=== PATIENT | female | born 1995 | race Caucasian/White ===

== ENCOUNTER → 2017-11-20 | Outpatient (CLI) | payer OTHER ==
[~2017-11-20] MED LIST: MEDR10 PO; Verotin-Gr Cap1 EACH PO
[2017-11-20 14:35] LABS: BASOPHILS ABSOLUTE AUTO 0.04 K/mm3 (0.00-0.23); BASOPHILS PERCENT AUTO 0 % (0-2); EOSINOPHILS ABSOLUTE AUTO 0.03 K/mm3 (0.00-0.68); EOSINOPHILS PERCENT AUTO 0 % (0-6); Hematocrit 34.7 % (33.0-51.0); Hemoglobin 11.3 g/dL (11.5-16.0); IMMATURE GRAN ABSOLUTE AUTO 0.03 K/mm3 (0.00-0.10); IMMATURE GRAN PERCENT AUTO 0 % (0-1); LYMPHOCYTES ABSOLUTE AUTO 1.33 K/mm3 (0.84-5.20); LYMPHOCYTES PERCENT AUTO 13 % (21-46); MONOCYTES ABSOLUTE AUTO 0.42 K/mm3 (0.16-1.47); MONOCYTES PERCENT AUTO 4 % (4-13); Mean Corpuscular HGB 29.4 pg (26.0-34.0); Mean Corpuscular HGB Conc 32.6 g/dL (31.5-36.5); Mean Corpuscular Volume 90 fL (80-100); Mean Platelet Volume 9.9 fL (9.1-12.4); NEUTROPHILS PERCENT AUTO 82 % (41-73); Platelet Count 309 K/mm3 (150-400); RDW Standard Deviation 39.7 fL (35.1-46.3); Red Blood Cell Count 3.84 M/mm3 (3.80-5.20); White Blood Cell Count 10.55 K/mm3 (4.00-11.30)
== END | disposition home or self-care (01) ==
LOC: LAB EV 14:32
PROVIDERS: Family Medicine
DX: N39.0 Urinary tract infection, site not specified (principal); R42 Dizziness and giddiness
CPT/HCPCS: 85025; 87086

== ENCOUNTER → 2018-07-03 | Outpatient (CLI) | payer OTHER ==
[~2018-07-03] MED LIST changes: -Verotin-Gr Cap1 EACH PO
== END | disposition home or self-care (01) ==
LOC: LAB 16:18 → LAB SHORT 16:18
PROVIDERS: Obstetrics & Gynecology
DX: Z12.4 Encounter for screening for malignant neoplasm of cervix (principal); N89.8 Other specified noninflammatory disorders of vagina
CPT/HCPCS: 87070; 87625; G0123

== ENCOUNTER 2019-03-28 18:25 | Inpatient (IN) | payer OTHER ==
[~2019-03-28] VITALS: Ht 160 cm; Wt 64.5 kg
[~2019-03-28 18:25] MED LIST changes: +Verotin-Gr Cap1 EACH PO
--- NOTE | 2019-03-28 18:37 | NUR ---
HERE WITH REOPRT OF CONTRACTIONS SINCE 199. STATES SHE HAS BEEN HAVING SEX TRYING TO GO INTO LABOR
[2019-03-28 19:20] LABS: BASOPHILS ABSOLUTE AUTO 0.02 K/mm3 (0.00-0.23); BASOPHILS PERCENT AUTO 0 % (0-2); EOSINOPHILS ABSOLUTE AUTO 0.08 K/mm3 (0.00-0.68); EOSINOPHILS PERCENT AUTO 1 % (0-6); Hematocrit 33.6 % (33.0-51.0); Hemoglobin 10.7 g/dL (11.5-16.0); IMMATURE GRAN ABSOLUTE AUTO 0.07 K/mm3 (0.00-0.10); IMMATURE GRAN PERCENT AUTO 1 % (0-1); LYMPHOCYTES ABSOLUTE AUTO 1.92 K/mm3 (0.84-5.20); LYMPHOCYTES PERCENT AUTO 17 % (21-46); MONOCYTES ABSOLUTE AUTO 0.61 K/mm3 (0.16-1.47); MONOCYTES PERCENT AUTO 5 % (4-13); Mean Corpuscular HGB 28.5 pg (26.0-34.0); Mean Corpuscular HGB Conc 31.8 g/dL (31.5-36.5); Mean Corpuscular Volume 90 fL (80-100); Mean Platelet Volume 10.3 fL (9.1-12.4); NEUTROPHILS ABSOLUTE AUTO 8.58 K/mm3 (1.96-9.15); NEUTROPHILS PERCENT AUTO 76 % (41-73); Platelet Count 230 K/mm3 (150-400); RDW Coefficient Variation 13.9 % (11.7-14.2); RDW Standard Deviation 44.9 fL (35.1-46.3); Red Blood Cell Count 3.75 M/mm3 (3.80-5.20); White Blood Cell Count 11.28 K/mm3 (4.00-11.30)
[2019-03-30 05:12] LABS: Hematocrit 33.8 % (33.0-51.0); Hemoglobin 10.6 g/dL (11.5-16.0); Mean Corpuscular HGB 28.6 pg (26.0-34.0); Mean Corpuscular HGB Conc 31.4 g/dL (31.5-36.5); Mean Corpuscular Volume 91 fL (80-100); Mean Platelet Volume 10.2 fL (9.1-12.4); Platelet Count 199 K/mm3 (150-400); RDW Coefficient Variation 13.9 % (11.7-14.2); RDW Standard Deviation 46.4 fL (35.1-46.3); White Blood Cell Count 9.99 K/mm3 (4.00-11.30)
[2019-03-30] MEDS ORDERED: IBUP800 PO (12:47)
== END 2019-03-30 13:50 | disposition home or self-care (01) | DRG 807 ==
LOC: OBS 18:25 → BC 18:48
PROVIDERS: Advanced Practice Midwife; ADMIT Nurse Practitioner Obstetrics & Gynecology
PROC: 10E0XZZ Delivery of Products of Conception, External Approach (ICD-10-PCS; principal; 2019-03-29)
PROC: 3E033VJ Introduction of Other Hormone into Peripheral Vein, Percutaneous Approach (ICD-10-PCS; 2019-03-29)
PROC: 10907ZC Drainage of Amniotic Fluid, Therapeutic from Products of Conception, Via Natural or Artificial Opening (ICD-10-PCS; 2019-03-29)
DX: O99.824 Streptococcus B carrier state complicating childbirth (principal); Z37.0 Single live birth; O71.82 Other specified trauma to perineum and vulva; Z3A.39 39 weeks gestation of pregnancy
CPT/HCPCS: 36415; 85025; 85027; J0290; J2210; J2270; J2550; J2590; J7120

== ENCOUNTER 2020-09-23 10:27 | Emergency (ER) | payer OTHER ==
[~2020-09-23] VITALS: Ht 162.6 cm; Wt 49.9 kg
[~2020-09-23 10:27] MED LIST changes: +IBUP800 PO
== END 2020-09-23 12:19 | disposition home or self-care (01) ==
LOC: ER 10:27
DX: T18.9XXA Foreign body of alimentary tract, part unspecified, initial encounter (principal)
CPT/HCPCS: 70360; 71046; 99283-25

== ENCOUNTER 2021-04-10 13:47 | Emergency (ER) | payer OTHER ==
[~2021-04-10] VITALS: Ht 162.6 cm; Wt 54.4 kg
[2021-04-10] MEDS ORDERED: PRENATAL TABLE1 EAC2 PO (13:54)
== END 2021-04-10 15:54 | disposition home or self-care (01) ==
LOC: ER 13:47
DX: S62.614A Displaced fracture of proximal phalanx of right ring finger, initial encounter for closed fracture (principal); W23.0XXA Caught, crushed, jammed, or pinched between moving objects, initial encounter
CPT/HCPCS: 29125; 73120; 99283-25

== ENCOUNTER 2021-09-29 07:15 | Inpatient (IN) | payer OTHER ==
[~2021-09-29] VITALS: Ht 162.6 cm; Wt 65.9 kg
[~2021-09-29 07:15] MED LIST changes: +PRENATAL TABLE1 EAC2 PO
[2021-09-29 08:26] LABS: BASOPHILS ABSOLUTE AUTO 0.01 K/mm3 (0.00-0.23); BASOPHILS PERCENT AUTO 0 % (0-2); EOSINOPHILS ABSOLUTE AUTO 0.02 K/mm3 (0.00-0.68); EOSINOPHILS PERCENT AUTO 0 % (0-6); Hemoglobin 9.3 g/dL (11.5-16.0); IMMATURE GRAN ABSOLUTE AUTO 0.02 K/mm3 (0.00-0.10); IMMATURE GRAN PERCENT AUTO 0 % (0-1); LYMPHOCYTES ABSOLUTE AUTO 1.05 K/mm3 (0.84-5.20); LYMPHOCYTES PERCENT AUTO 21 % (21-46); MONOCYTES ABSOLUTE AUTO 0.32 K/mm3 (0.16-1.47); MONOCYTES PERCENT AUTO 6 % (4-13); Mean Corpuscular HGB 28.2 pg (26.0-34.0); Mean Corpuscular HGB Conc 32.1 g/dL (31.5-36.5); Mean Corpuscular Volume 88 fL (80-100); Mean Platelet Volume 10.3 fL (9.1-12.4); NEUTROPHILS ABSOLUTE AUTO 3.65 K/mm3 (1.96-9.15); NEUTROPHILS PERCENT AUTO 72 % (41-73); Platelet Count 207 K/mm3 (150-400); RDW Coefficient Variation 13.4 % (11.7-14.2); RDW Standard Deviation 43.3 fL (35.1-46.3); White Blood Cell Count 5.07 K/mm3 (4.00-11.30)
[2021-09-30 08:24] LABS: Hematocrit 26.3 % (33.0-51.0); Hemoglobin 8.4 g/dL (11.5-16.0); Mean Corpuscular HGB 28.4 pg (26.0-34.0); Mean Corpuscular HGB Conc 31.9 g/dL (31.5-36.5); Mean Corpuscular Volume 89 fL (80-100); Mean Platelet Volume 10.5 fL (9.1-12.4); Platelet Count 210 K/mm3 (150-400); RDW Coefficient Variation 13.4 % (11.7-14.2); RDW Standard Deviation 43.8 fL (35.1-46.3); Red Blood Cell Count 2.96 M/mm3 (3.80-5.20); White Blood Cell Count 8.47 K/mm3 (4.00-11.30)
[2021-09-30] MEDS ORDERED: IBUP800 PO (18:12)
--- NOTE | 2021-09-30 21:05 | NUR ---
LATE ENTRY: 2020 ID BANDS MATCHED WITH BABY AND FOB. QUESTIONS WERE ANSWERED AND PATIENT WAS DISCHARGED HOME WITH BABY AND FOB.
== END 2021-09-30 20:26 | disposition home or self-care (01) | DRG 807 ==
LOC: OBS 07:15 → BC 07:17 → OBS 07:44 → BC 07:45 → OBS 07:45 → NUR 07:45 → BC 19:47
PROVIDERS: ADMIT Advanced Practice Midwife
PROC: 10E0XZZ Delivery of Products of Conception, External Approach (ICD-10-PCS; principal; 2021-09-29)
DX: O42.02 Full-term premature rupture of membranes, onset of labor within 24 hours of rupture (principal); Z37.0 Single live birth; Z3A.38 38 weeks gestation of pregnancy; Z28.21 Immunization not carried out because of patient refusal; O90.81 Anemia of the puerperium; D64.9 Anemia, unspecified
CPT/HCPCS: 36415; 85025; 85027; 86850; 86900; 86901; A9270; J1885; J2210; J2590; J7120

== ENCOUNTER → 2022-06-22 | Outpatient (CLI) | payer OTHER ==
[2022-06-22 17:30] LABS: BASOPHILS ABSOLUTE AUTO 0.02 K/mm3 (0.00-0.23); BASOPHILS PERCENT AUTO 0 % (0-2); EOSINOPHILS ABSOLUTE AUTO 0.03 K/mm3 (0.00-0.68); EOSINOPHILS PERCENT AUTO 1 % (0-6); Hematocrit 44.7 % (33.0-51.0); Hemoglobin 14.2 g/dL (11.5-16.0); IMMATURE GRAN ABSOLUTE AUTO 0.01 K/mm3 (0.00-0.10); IMMATURE GRAN PERCENT AUTO 0 % (0-1); LYMPHOCYTES ABSOLUTE AUTO 1.57 K/mm3 (0.84-5.20); LYMPHOCYTES PERCENT AUTO 29 % (21-46); MONOCYTES ABSOLUTE AUTO 0.28 K/mm3 (0.16-1.47); MONOCYTES PERCENT AUTO 5 % (4-13); Mean Corpuscular HGB 28.9 pg (26.0-34.0); Mean Corpuscular HGB Conc 31.8 g/dL (31.5-36.5); Mean Corpuscular Volume 91 fL (80-100); Mean Platelet Volume 10.5 fL (9.1-12.4); NEUTROPHILS ABSOLUTE AUTO 3.56 K/mm3 (1.96-9.15); NEUTROPHILS PERCENT AUTO 65 % (41-73); Platelet Count 254 K/mm3 (150-400); RDW Coefficient Variation 13.7 % (11.7-14.2); RDW Standard Deviation 46.3 fL (35.1-46.3); Red Blood Cell Count 4.91 M/mm3 (3.80-5.20); White Blood Cell Count 5.47 K/mm3 (4.00-11.30)
[2022-06-22 18:12] LABS: Free Thyroxine 0.87 ng/dL (0.70-1.60); Percent Saturation 22.4 % (15.0-50.0); Thyroid Stimulating Hormone 2.29 uIU/mL (0.360-4.800); Triiodothyronine, Free 3.18 pg/mL (2.18-3.98)
[2022-06-22 18:20] LABS: Albumin, Blood 4.5 g/dL (3.4-5.0); Albumin/Globulin Ratio 1.5 (0.8-1.8); Bilirubin, Total 0.4 mg/dL (0.1-1.0); Bun/Creatinine Ratio 20.4 (12.0-20.0); Calcium, Blood 9.4 mg/dL (8.5-10.1); Creatinine, Blood 0.64 mg/dL (0.40-1.00); Potassium, Blood 3.9 mmol/L (3.5-5.5); Total Protein, Blood 7.5 g/dL (6.4-8.2)
== END | disposition home or self-care (01) ==
LOC: LAB SHORT 10:00 → LAB 10:00
PROVIDERS: Nurse Practitioner Family
DX: E55.9 Vitamin D deficiency, unspecified (principal); R53.83 Other fatigue
CPT/HCPCS: 80053; 82306; 82607; 82728; 82746; 83540; 83550; 84439; 84443; 84481; 85025

== ENCOUNTER 2023-02-08 12:57 | Day surgery (SDC) | payer OTHER ==
[~2023-02-08] VITALS: Ht 162.6 cm; Wt 51.4 kg
--- NOTE | 2023-02-08 13:42 | NUR ---
02/08/23 1342 Rocio Dawson CALL LIGHT WITHIN REACH. SURYA WIPES TO SURGICAL SITE. NO FURTHER QUESTIONS OR CONCERNS AT THIS TIME.
--- NOTE | 2023-02-08 15:29 | NUR ---
02/08/23 1529 Rebekah Alejo ROPIVACAINE 0.5% 20 MLS MIXED & VERIFIED W/ EPI 0.10 ML (1MG/ML) PER ORDER TO MAKE ROPIVACAINE 0.5% 1:200,000 FOR INJECTION AT OPSITE BY DR ELIZALDE. 10 MLS INJECTED.
--- NOTE | 2023-02-08 16:15 | NUR ---
02/08/23 1615 LAURIE WESTBROOK CONTINUED PAIN 7-05/31. O2 SAT 100% ON RA. PULSE 69. BP 119/85.
--- NOTE | 2023-02-08 16:32 | NUR ---
02/08/23 2272 LAURIE WESTBROOK STUDENT KAROLINA RICO IS ASSISTING WITH PT CARE
[2023-02-08 17:11] VITALS: BP 106/70
== END 2023-02-08 17:21 | disposition home or self-care (01) ==
LOC: ORSCSDS 12:57
PROVIDERS: Obstetrics & Gynecology
PROC: 0UT74ZZ Resection of Bilateral Fallopian Tubes, Percutaneous Endoscopic Approach (ICD-10-PCS; principal; 2023-02-08 14:15)
DX: Z30.2 Encounter for sterilization (principal)
CPT/HCPCS: 88302; A9270; J0171; J1100; J2250; J2405; J2704; J2795; J3010; J7120

== ENCOUNTER → 2024-07-07 | Outpatient (CLI) | payer OTHER | END | disposition home or self-care (01) | LOC: LAB 09:52 → LAB SHORT 09:52 | DX: N39.0 Urinary tract infection, site not specified (principal) | CPT/HCPCS: 87077; 87086; 87186 ==

== ENCOUNTER → 2024-08-12 | Outpatient (CLI) | payer OTHER | LOC: LAB SHORT 07:39 → PLD 07:39 | DX: D48.5 Neoplasm of uncertain behavior of skin (principal) | CPT/HCPCS: 88312 ==